=== PATIENT | female | born 1990 | race Caucasian/White ===

== ENCOUNTER 2017-05-13 23:11 | Emergency (ER) | payer OTHER ==
[~2017-05-13] VITALS: Ht 149.9 cm; Wt 50.0 kg
[~2017-05-13 23:11] MED LIST: SERO50TA PO
[2017-05-13 23:41] LABS: MEAN CORPUSCULAR HEMOGLOBIN 30.9 pg (27.0-33.0); MEAN CORPUSCULAR VOLUME 88.1 fl (80.0-96.0); RED CELL DISTRIBUTION WIDTH 12.7 % (11.5-14.5); WHITE BLOOD COUNT 4.4 K/mm3 (4.0-10.0)
[2017-05-14 00:28] LABS: ANION GAP 3 MEQ/L (8-16); BLOOD UREA NITROGEN 11 MG/DL (7-18); CALCIUM LEVEL 8.4 MG/DL (8.5-10.1); CARBON DIOXIDE LEVEL 31 MEQ/L (21-32); CHLORIDE LEVEL 108 MEQ/L (98-107); CREATININE FOR GFR 0.75 MG/DL (0.55-1.02); GLOMERULAR FILTRATION RATE > 60.0 (>60); GLUCOSE, FASTING 90 MG/DL (70-105); POTASSIUM SERUM 3.7 MEQ/L (3.5-5.1); SODIUM LEVEL 142 MEQ/L (136-145)
[2017-05-14] MEDS ORDERED: ONDANSETRON 4MG/2ML VIAL (J2405) IV ONE (01:00)
[2017-05-14] MEDS ORDERED: NS 1,000 ML IV ONE (01:00)
[2017-05-14 01:11] LABS: CONTROL LINE HCG INT CTR LINE PRESENT
[2017-05-14] MEDS: MORPHINE 4 MG/ML 1ML SYRINGE IV PRN ×2 (01:13→01:42)
[2017-05-14 01:16] LABS: ALBUMIN 3.6 GM/DL (3.2-5.2); ALBUMIN/GLOBULIN RATIO 1.33 (1.00-1.93); ALKALINE PHOSPHATASE 61 U/L (45-117); ALT/SGPT 20 U/L (12-78); AST/SGOT 21 U/L (15-37); BILIRUBIN,DIRECT 0.1 MG/DL (0.0-0.2); BILIRUBIN,TOTAL 0.6 MG/DL (0.2-1.0); TOTAL PROTEIN 6.3 GM/DL (6.4-8.2)
[2017-05-14] MEDS ORDERED: HYDROmorphone HCL 1 MG/ML SYRINGE (J1170) IV PRN (02:30)
[2017-05-14] MEDS ORDERED: ISOVUE-370 76% 100ML VIAL (Q9967) As Ordered ONE (02:31)
--- NOTE | 2017-05-14 03:20 | REPUSA ---
CLINICAL HISTORY: Abdominal pain. TECHNIQUE: Multiple axial, sagittal and coronal CT images were obtained through the abdomen and pelvi s after administration of intravenous contrast material. COMMENTS: Fluid filled small bowels. Fluid / food residue in the stomach. Mildly dilated common bile duct measuring 7.3 mm. The liver is mildly enlarged without mass or defect. There is no intra or extrahepatic biliary ductal dilatation. The spleen is normal. The gallbladder contains gallstones. The pancreas is of normal contour and attenuation characteristics. There is no evidence of adrenal mass. Both kidneys demonstrate prompt and equal nephrograms. The kidneys are normal in size, shape and conf iguration. There is no evidence of renal or ureteral mass. No renal or ureteral calculi are identifie d. There is no hydroureter or hydronephrosis. No evidence for appendicitis. There is no bowel wall thickening. No evidence for small or large marcellus l obstruction. There is no evidence of abdominal ascites or lymphadenopathy. There is no evidence of intrinsic or extrinsic bladder mass. There is no pelvic ascites or lymphadeno stephanie. Diffusely thickened bladder. Images of the lung bases show no evidence of pleural or parenchymal mass. There are no pleural effusi ons. The bony structures are free of lytic or blastic lesions. IMPRESSION: Mildly dilated common bile that measuring 7.3 mm. Please correlate with liver function tests. Cholelithiasis. Fluid-filled bowel, possibly ileus versus enteritis. Fluid / food residue in the stomach. Recent ingestion of food versus gastroparesis. Hepatomegaly. Diffusely thickened bladder. Underdistention, spasm versus cystitis. Thank you for your kind referral of this patient.
[2017-05-14] MEDS ORDERED: ZOFR4TAB3 PO (04:34)
[2017-05-14] MEDS ORDERED: OXYCODONE/APAP 5MG/325MG(BULK FOR ED) 1 TABLET PO ONE (04:45)
[2017-05-14 04:59] VITALS: BP 98/56
--- NOTE | 2017-05-14 16:48 | ED PDOC ---
Post-Departure Follow-Up radiology report faxed to [facility] Dara Wagner MD May 14, 2017 16:48
[2017-05-15] MEDS ORDERED: LUNE1TAB5 PO (18:03)
[2017-05-15] MEDS ORDERED: BUPR150T3 (18:03)
[2017-05-15] MEDS ORDERED: CLON-412 (18:03)
[2017-05-15] MEDS ORDERED: PERC5TAB12 PO (20:20)
[2017-05-15] MEDS ORDERED: PRIL20TA2 PO (20:20)
[2017-05-15] MEDS ORDERED: REGL10TA6 PO (20:20)
== END 2017-05-14 05:01 | disposition home or self-care (01) ==
LOC: EDBD 23:11 → M ED 23:11
DX: K52.9 Noninfective gastroenteritis and colitis, unspecified (principal); F17.210 Nicotine dependence, cigarettes, uncomplicated; Z79.899 Other long term (current) drug therapy; Z91.040 Latex allergy status; Z88.1 Allergy status to other antibiotic agents
CPT/HCPCS: 74177; 80048; 80076; 83690; 84703; 85027; 96374; 96375; 99283; J1170; J2405; Q9967

== ENCOUNTER 2017-05-15 17:55 | Emergency (ER) | payer OTHER ==
[~2017-05-15] VITALS: Ht 149.9 cm; Wt 50.0 kg
[~2017-05-15 17:55] MED LIST changes: +ZOFR4TAB3 PO
[2017-05-15] MEDS ORDERED: CLON-412 (18:03)
[2017-05-15] MEDS ORDERED: BUPR150T3 (18:03)
[2017-05-15] MEDS ORDERED: LUNE1TAB5 PO (18:03)
[2017-05-15] MEDS ORDERED: METAL LOCK LOOP XX ONE (18:37)
[2017-05-15] MEDS ORDERED: PERC5TAB12 PO (20:20)
[2017-05-15] MEDS ORDERED: REGL10TA6 PO (20:20)
[2017-05-15] MEDS ORDERED: PRIL20TA2 PO (20:20)
[2017-05-15] MEDS ORDERED: METOCLOPRAMIDE 10 MG TAB PO ONE (20:30)
[2017-05-15] MEDS ORDERED: PERCOCET 5MG/325MG TAB PO ONE (20:30)
[2017-05-15 20:35] VITALS: BP 108/70
== END 2017-05-15 20:36 | disposition home or self-care (01) ==
LOC: M ED 17:55
DX: A08.4 Viral intestinal infection, unspecified (principal); K21.9 Gastro-esophageal reflux disease without esophagitis; F17.210 Nicotine dependence, cigarettes, uncomplicated; Z79.899 Other long term (current) drug therapy; Z91.040 Latex allergy status; Z88.1 Allergy status to other antibiotic agents

== ENCOUNTER → 2018-07-16 | Outpatient (CLI) | payer OTHER ==
[~2018-07-16] MED LIST changes: +METHACHOLINE KIT (J7674) INH; -SERO50TA PO; -ZOFR4TAB3 PO
== END ==
LOC: M CARPUL 09:21
DX: R06.00 Dyspnea, unspecified (principal)
CPT/HCPCS: J7674

== ENCOUNTER → 2018-09-27 | Outpatient (REF) | payer OTHER ==
[~2018-09-27] MED LIST changes: +BUPR150T3; +CLON-412; +LUNE1TAB5 PO; -METHACHOLINE KIT (J7674) INH; +PERC5TAB12 PO; +PRIL20TA2 PO; +REGL10TA6 PO; +SERO50TA PO; +ZOFR4TAB14 PO
[2018-09-27 14:28] LABS: APPEARANCE, URINE HAZY (CLEAR); BACTERIA, URINE AUTO NEGATIVE (NEGATIVE); BILIRUBIN, URINE AUTO NEGATIVE (NEGATIVE); BLOOD, URINE BLOOD 1+ (NEGATIVE); CALCIUM OXALATE CRYSTALS SMALL; COLOR, URINE YELLOW (YELLOW); GLUCOSE, URINE (UA) AUTO NEGATIVE (NEGATIVE); KETONE, URINE AUTO NEGATIVE (NEGATIVE); LEUKOCYTE ESTERASE, URINE AUTO NEGATIVE (NEGATIVE); MUCUS, URINE LARGE (NEGATIVE); NITRITE, URINE AUTO NEGATIVE (NEGATIVE); PROTEIN, URINE AUTO NEGATIVE (NEGATIVE); RBC, URINE AUTO 6 /HPF (0-3); SPECIFIC GRAVITY URINE AUTO 1.025 (1.002-1.035); SQUAMOUS EPITHELIAL CELL UR AU 8 /HPF (0-6); WBC, URINE AUTO 1 /HPF (0-3)
== END ==
LOC: M SMT 13:18
PROVIDERS: ATTEND Nurse Practitioner Family
DX: N20.0 Calculus of kidney (principal)
CPT/HCPCS: 51798; 81001; 87086; G0463

== ENCOUNTER → 2018-10-04 | Outpatient (CLI) | payer OTHER ==
--- NOTE | 2018-10-04 11:15 | REP ---
CT of the abdomen pelvis without IV or bowel contrast for renal calculi: Comparison is 05/14/2017 with IV contrast. There is a 3 mm calculus in the lower pole of the left kidney, nonobstructive. There is no hydronephrosis. No other renal calculi are identified on the right on the left. There is a 4 mm calcification posterolateral to the urinary bladder on the left, unchanged from the comparison study. There is no hydroureter. This is likely a phlebolith. However, depending on symptomatology, a CT urogram might be considered to better evaluate the distal left ureter in relation to this calculus. There are other calcifications more inferiorly in the pelvis, likely phleboliths. There are no bladder calculi. The visualized lung rhodes are unremarkable. The unenhanced hepatic parenchyma, pancreas and spleen are unremarkable except for splenic calcified granulomas. There are surgical clips in the gallbladder fossa. The adrenals are unremarkable. There is minimal peritoneal mesenteric body fat. The aorta is suboptimally demonstrated in the absence of IV contrast. The bowel mesentery are otherwise unremarkable. Pelvis: There are surgical clips versus calcifications in the right lower quadrant. The appendix is not visualized. There is no ascites. Minimal body fat precludes evaluation for adenopathy. The uterus and adnexa are unremarkable. Pelvic bowel loops are unremarkable. Impression: Nonobstructive 3 mm left renal calculus. No hydronephrosis. Nonspecific calcification posterolateral to the urinary bladder on the left. No hydroureter. Depending on symptomatology consider CT urogram to evaluate the distal left ureter in relation to this calculus. Electronically Signed by Wilber Carter MD 10/04/2018 11:06 A
== END ==
LOC: M RAD 10:02
PROVIDERS: ATTEND Nurse Practitioner Family
DX: N20.0 Calculus of kidney (principal); D73.89 Other diseases of spleen; N32.89 Other specified disorders of bladder

== ENCOUNTER → 2018-10-24 | Outpatient (REF) | payer OTHER ==
[2018-10-24 13:56] LABS: BASO # 0.1 10^3/uL (0.0-0.2); EOS # 0.1 10^3/uL (0.0-0.50); HEMATOCRIT 36.3 % (36.0-47.0); HEMOGLOBIN 11.9 g/dl (12.0-15.5); LYMPH # 1.6 10^3/uL (1.5-6.5); MEAN CORPUSCULAR HEMOGLOBIN 29.1 pg (27.0-33.0); MEAN CORPUSCULAR HGB CONC 32.8 g/dl (32.0-36.5); MEAN CORPUSCULAR VOLUME 88.8 fl (80.0-96.0); MONO # 0.5 10^3/uL (0.0-0.8); MONO % 7.7 % (0.0-5.0); NEUTROPHILS # 3.8 10^3/uL (1.8-7.7); NEUTROPHILS % 62.1 % (36.0-66.0); PLATELET COUNT, AUTOMATED 195 10^3/uL (150-450); RED BLOOD COUNT 4.09 10^6/uL (4.00-5.40); WHITE BLOOD COUNT 6.1 10^3/uL (4.0-10.0)
[2018-10-29 08:06] LABS: D001-IgE D pteronyssinus 2.11 kU/L (Class III); E001-IgE Cat Epith/Dander < 0.10 kU/L (Class 0); E005-IgE Dog Dander < 0.10 kU/L (Class 0); G002-IgE Bermuda Grass < 0.10 kU/L (Class 0); G008-IgE Kentucky Bluegrass < 0.10 kU/L (Class 0); M001-IgE Penicillium chrysogen < 0.10 kU/L (Class 0); M002 IgE Cladosporium herbaru < 0.10 kU/L (Class 0); M003 IgE Aspergillus fumigatu < 0.10 kU/L (Class 0); M006-IgE Alternaria alternata < 0.10 kU/L (Class 0); T001-IgE Maple/Box Elder < 0.10 kU/L (Class 0); T003-IgE Common Silver Birch < 0.10 kU/L (Class 0); T006-IgE Cedar, Mountain < 0.10 kU/L (Class 0); T007-IgE Oak, White < 0.10 kU/L (Class 0); T008-IgE Elm, American < 0.10 kU/L (Class 0); T015-IgE Ash, White < 0.10 kU/L (Class 0); T041-IgE Hickory, White < 0.10 kU/L (Class 0); T070-IgE White Mulberry < 0.10 kU/L (Class 0); W001-IgE Ragweed, Short 0.49 kU/L (Class I); W009-IgE Plantain, English < 0.10 kU/L (Class 0); W014-IgE Pigweed, Rough < 0.10 kU/L (Class 0); W018-IgE Sheep Sorrel < 0.10 kU/L (Class 0)
== END ==
LOC: M LAB REF 13:02
PROVIDERS: ATTEND Internal Medicine Pulmonary Disease
DX: J45.40 Moderate persistent asthma, uncomplicated (principal)

== ENCOUNTER 2018-11-16 18:13 | Emergency (ER) | payer OTHER ==
[~2018-11-16] VITALS: Ht 149.9 cm; Wt 53.2 kg
[~2018-11-16 18:13] MED LIST changes: -BUPR150T3; +BUPR150T3 PO; -CLON-412; +CLON-412 PO
[2018-11-16] MEDS ORDERED: NS 1,000 ML IV ONE ×2 (18:30→19:00)
[2018-11-16] MEDS ORDERED: SULFAMETHOXAZOLE-TMP PO (18:32)
[2018-11-16] MEDS ORDERED: PROAAER10 INH (18:32)
[2018-11-16] MEDS ORDERED: PRED10TA2 PO (18:32)
[2018-11-16] MEDS ORDERED: TIZA4CAP PO (18:32)
[2018-11-16] MEDS ORDERED: GABA-843 PO (18:32)
[2018-11-16] MEDS ORDERED: CLOP75TA2 PO (18:32)
[2018-11-16] MEDS ORDERED: LORA0.5T11 PO (18:32)
[2018-11-16 18:45] LABS: BASO # 0.1 10^3/uL (0.0-0.2); BASO % 1.1 % (0.0-1.0); EOS # 0.1 10^3/uL (0.0-0.50); EOS % 1.5 % (0.0-3.0); HEMATOCRIT 33.7 % (36.0-47.0); HEMOGLOBIN 11.1 g/dl (12.0-15.5); LYMPH # 2.2 10^3/uL (1.5-6.5); LYMPH % 25.9 % (24.0-44.0); MEAN CORPUSCULAR HEMOGLOBIN 28.8 pg (27.0-33.0); MEAN CORPUSCULAR HGB CONC 32.9 g/dl (32.0-36.5); MEAN CORPUSCULAR VOLUME 87.3 fl (80.0-96.0); MONO # 0.7 10^3/uL (0.0-0.8); MONO % 7.7 % (0.0-5.0); NEUTROPHILS # 5.4 10^3/uL (1.8-7.7); NEUTROPHILS % 63.6 % (36.0-66.0); PLATELET COUNT, AUTOMATED 216 10^3/uL (150-450); RED BLOOD COUNT 3.86 10^6/uL (4.00-5.40); WHITE BLOOD COUNT 8.4 10^3/uL (4.0-10.0)
[2018-11-16 18:47] LABS: VENOUS BASE EXCESS -1.9 (-2.0-2.0); VENOUS HCO3 23.2 MEQ/L (23.0-27.0); VENOUS O2 SATURATION 98.2 % (60.0-80.0); VENOUS PARTIAL PRESSURE CO2 40.7 mmHg (38.0-50.0); VENOUS PH 7.373 UNITS (7.330-7.430); VENOUS STANDARD HCO3 22.9 MEQ/L; VENOUS TOTAL CO2 24.4 MEQ/L (24.0-28.0)
[2018-11-16 19:21] LABS: HCG, SERUM QUALITATIVE NEGATIVE (NEGATIVE)
[2018-11-16 19:30] LABS: ACETAMINOPHEN LEVEL < 2.0 UG/ML (10.0-30.0); ALBUMIN 3.7 GM/DL (3.2-5.2); ALT/SGPT 15 U/L (12-78); BILIRUBIN,DIRECT 0.2 MG/DL (0.0-0.2); BILIRUBIN,TOTAL 0.7 MG/DL (0.2-1.0); BLOOD UREA NITROGEN 13 MG/DL (7-18); CALCIUM LEVEL 8.2 MG/DL (8.5-10.1); CARBON DIOXIDE LEVEL 24 MEQ/L (21-32); CHLORIDE LEVEL 110 MEQ/L (98-107); CPK CREATINE PHOSPHOKINASE 89 U/L (26-192); CREATININE FOR GFR 0.74 MG/DL (0.55-1.30); ETHYL ALCOHOL (ETHANOL) < 0.003 % (0.000-0.010); GLOMERULAR FILTRATION RATE > 60.0 (>60); GLUCOSE, FASTING 117 MG/DL (70-100); SALICYLATE LEVEL 2.4 MG/DL (5.0-30.0); SODIUM LEVEL 140 MEQ/L (136-145); TOTAL PROTEIN 6.2 GM/DL (6.4-8.2)
--- NOTE | 2018-11-16 19:48 | REP ---
Clinical: Drug overdose . Comparison: None . Findings: The ventricles, sulci, and cisterns are normal in position and appearance. Parham-white differentiation is maintained. No acute intracranial hemorrhage, mass/mass effect, pathology or trauma/injury. No evidence for acute infarction. No extra-axial fluid collection. Calvarium is intact. Paranasal sinuses and mastoid air cells are clear. Impression: Normal noncontrast head CT. No evidence for acute intracranial pathology or trauma/injury. Electronically Signed by Marcello Todd MD 11/16/2018 07:39 P
[2018-11-16 21:40] VITALS: BP 103/60
--- NOTE | 2018-11-17 11:05 | ECGEPIP ---
Stationary ECG Study [facility] - ED Test Date: 2018-11-16 Pat Name: JOSIAS SHEA Department: Room: - Gender: F [employer] Machine: VINEET : [id number] Requested By: Dara Wagner Order Number: [id number] Reading MD: Michelle Diaz Measurements Intervals Shushan Rate: 61 P: 73 [place]: 149 QRS: 47 QRSD: 82 T: 40 QT: 424 QTc: 429 Interpretive Statements SINUS RHYTHM NO OLD ECG FOR COMPARISON Electronically Signed On 11-17-2018 11:05:01 EDT by Michelle Diaz
== END 2018-11-16 22:55 | disposition home or self-care (01) ==
LOC: EDBD 18:13 → M ED 18:13
DX: T50.991A Poisoning by other drugs, medicaments and biological substances, accidental (unintentional), initial encounter (principal); Y92.9 Unspecified place or not applicable; Y93.9 Activity, unspecified; G43.909 Migraine, unspecified, not intractable, without status migrainosus; K21.9 Gastro-esophageal reflux disease without esophagitis; Z72.0 Tobacco use; Z79.899 Other long term (current) drug therapy; Z88.1 Allergy status to other antibiotic agents; Z91.040 Latex allergy status
CPT/HCPCS: 36415; 70450; 80048; 80076; 82550; 82803; 84443; 84703; 85025; 93005; 93041; 96361; 99285; G0480

== ENCOUNTER → 2019-01-10 | Outpatient (CLI) | payer OTHER ==
[~2019-01-10] MED LIST changes: +CLOP75TA2 PO; +GABA-843 PO; +LORA0.5T11 PO; +PRED10TA2 PO; +PROAAER10 INH; +SULFAMETHOXAZOLE-TMP PO; +TIZA4CAP PO
--- NOTE | 2019-01-10 16:27 | REP ---
CT Head without contrast HISTORY: Aneurysm COMPARISON: 11/16/2018 There is no intraparenchymal hemorrhage, acute infarct, mass or midline shift. The ventricular system is normal in appearance. There is no extra cerebral collection. There is no fracture. The visualized sinuses are clear. IMPRESSION: There is no intracranial lesion. Electronically Signed by Arthur Fairchild MD 01/10/2019 04:19 P
== END ==
LOC: M RAD 16:00
PROVIDERS: ATTEND Physician Assistant Medical
DX: I67.1 Cerebral aneurysm, nonruptured (principal); R20.0 Anesthesia of skin

== ENCOUNTER → 2019-01-17 | Outpatient (CLI) | payer OTHER ==
[~2019-01-17] MED LIST changes: +ISOVUE-370 76% 100ML VIAL (Q9967) As Ordered ONE
--- NOTE | 2019-01-17 15:56 | REP ---
HYSTEROSALPINGOGRAM: Patient is referred for hysterosalpingogram. Patient's referring clinician catheterized the cervix and injected contrast. I performed fluoroscopic imaging and obtained images. Uterine cavity demonstrates no definite filling defect or contour abnormality. Both fallopian tubes fill well and are not dilated. There is free bilateral intraperitoneal spillage of contrast indicating bilateral fallopian tube patency. There is visualization of lymphatics surrounding the uterus. IMPRESSION: There is bilateral fallopian tube patency. 0.3 minutes fluoroscopy time utilized. Electronically Signed by Wilber Parham MD 01/17/2019 04:18 P
== END ==
LOC: M RADPRO 12:00
PROVIDERS: ATTEND Obstetrics & Gynecology
DX: N97.9 Female infertility, unspecified (principal)
CPT/HCPCS: 58340; 74740; Q9967

== ENCOUNTER 2019-09-30 13:41 | Emergency (ER) | payer OTHER ==
[~2019-09-30] VITALS: Ht 149.9 cm; Wt 57.7 kg
[2019-09-30 13:41] VITALS: BP 121/76
[~2019-09-30 13:41] MED LIST changes: -ISOVUE-370 76% 100ML VIAL (Q9967) As Ordered ONE; -LORA0.5T11 PO; +LORA0.5T5 PO
[2019-09-30] MEDS ORDERED: ASPI-226 (13:54)
[2019-09-30] MEDS ORDERED: [UNRECOGNIZED DRUG - OTHER] (13:54)
[2019-09-30 14:46] LABS: INFLUENZA A AMPLIFICATION POSITIVE (NEGATIVE); INFLUENZA B AMPLIFICATION NEGATIVE (NEGATIVE)
== END 2019-09-30 14:50 | disposition left against medical advice (07) ==
LOC: M ED 13:41
DX: Z53.21 Procedure and treatment not carried out due to patient leaving prior to being seen by health care provider (principal)